=== PATIENT | male | born 2000 | race Caucasian/White ===

== ENCOUNTER 2020-01-09 16:54 | Emergency (ER) | payer SELFPAY ==
[~2020-01-09] VITALS: Ht 177.8 cm; Wt 64.5 kg
[2020-01-09 17:11] VITALS: Ht 177.8 cm; Wt 64.5 kg
[2020-01-09 19:10] VITALS: BP 124/67
== END 2020-01-09 19:11 | disposition home or self-care (01) ==
LOC: D.ER 16:54
DX: S09.90XA Unspecified injury of head, initial encounter (principal); W22.8XXA Striking against or struck by other objects, initial encounter; Y93.9 Activity, unspecified; Y92.9 Unspecified place or not applicable; F07.81 Postconcussional syndrome